=== PATIENT | female | born 1985 | race African-American/Black ===

== ENCOUNTER 2016-09-09 15:06 | Inpatient (IN) | payer OTHER ==
--- NOTE | ~2016-09-09 | BMI ---
[facility] Therapy DATE: 09/10/16 Patient: ELISE JORGENSEN Physician: ISABELLE Address: [address] [place] [address] Room/Bed: [address] [place] [address], Zip: [place] [address] Admit Date: 09/09/16 Date of : [birth year] Height: 5 7 Weight: 425 192.77 HIGH BMI NOTE: DX: 30 Y.O. FEMALE ADMITTED FOR PNA, COPD, RESP FAILURE ANTHROPOMETRICS: 5'7", WT: 425# (193 KG), BMI: 66.6 DIET: HH INTERVENTION: 1. DIET RECOMMENDATIONS: 1. RECOMMEND TO ADD CC TO CURRENT DIET ORDER ABOVE TO PROMOTE GRADUAL WEIGHT LOSS TOWARDS HEALTHY BMI (19.0-25.0) OR +/-10%IBW RD WILL F/U PER PROTOCOL Respectfully, ARY GALLEGOS MS, RD, LD [facility] Nutrition[facility] cc: client file
--- NOTE | ~2016-09-09 | EKG ---
PATIENT: ELISE JORGENSEN UNIT #: [id number] Ventricular Rate: 102 BPM Atrial Rate: 102 BPM P-R Interval: 144 ms QRS Duration: 78 ms Q-T Interval: 334 ms QTC Calculation(Bezet): 435 ms P Weare: 48 degrees Calculated R Weare: 12 degrees Calculated T Weare: 21 degrees Diagnosis Line: Sinus tachycardia Diagnosis Line: Otherwise normal ECG Diagnosis Line: When compared with ECG of 11-JUL-2016 15:58, Diagnosis Line: No significant change was found Diagnosis Line: Confirmed by MARION CARROLL MD ([id number]) on Diagnosis Line: 09/12/2016 12:00:38 AM INTERPRETING MD: CARLY OLIVA
--- NOTE | ~2016-09-09 | HP ---
Unit #: [id number] #: [id number] Patient: ESTEPHANIA JORGENSEN [id number] [facility]. [place], [place] [address] [id number] MR#: [id number] NAME: ESTEPHANIA JORGENSEN ROOM: 218 Age: 30 Sex: F Admission Date: 09/09/2016 : 1985 Attending Physician: Sulaiman White M.D. Primary Care Physician: Jorge Wen M.D. HISTORY AND PHYSICAL CHIEF COMPLAINT Shortness of breath. HISTORY OF PRESENT ILLNESS Ms. Estephania Jorgensen is a 30-year-old morbidly obese female with multiple medical problems including COPD, chronic respiratory failure on home O2, bilateral avascular necrosis of the hip diagnosed recently at [facility] by Dr. Good, history of diastolic congestive heart failure, tobacco abuse, bipolar disorder, hypertension, hypothyroidism, bipolar disorder, obstructive sleep apnea, superior venous thrombosis of arm recently which was two weeks ago. Came to [facility] ER with shortness of breath. The patient was recently discharged from [facility] on September 06, 2016, after being diagnosed again with the same problem of shortness of breath, asthma/COPD exacerbation and also superficial (1) . She has had multiple admissions. She is kind of noncompliant, continued to smoke. According to patient, she started after discharge. She thinks that they did not do anything. She continued to have shortness of breath, came to ER, and was admitted for the same reason. The patient does not complain of chest pain. She does not complain of any abdominal pain. No nausea, vomiting. No syncopal episode or dizziness. PAST MEDICAL HISTORY 1. Again chronic respiratory failure on home O2. 2. COPD/asthma. 3. Hyperglycemia. 4. Bilateral avascular necrosis of the hip. 5. Diastolic congestive heart failure. 6. Tobacco abuse. 7. Bipolar disorder. 8. Morbid obesity. 9. Hypertension. 10. Hypothyroidism. 11. Chronic pain. 12. Multiple admissions to hospital. ALLERGIES Toradol. SOCIAL HISTORY The patient lives with her spouse and a child. She smokes one pack per day, has been smoking for long period of time. No history of alcohol abuse or drug abuse. Unit #: [id number] #: [id number] Patient: ESTEPHANIA JORGENSEN FAMILY HISTORY Both her parents have lung disease and family history of morbid obesity. PAST SURGICAL HISTORY History of cardiac cath which was done on March 22, 2014. It revealed there is 20% stenosis to the mid RCA. HOME MEDICATIONS 1. Coreg 25 mg twice a day. 2. Neurontin 600 mg three times a day. 3. Guaifenesin 600 mg twice a day. 4. Synthroid 88 mcg daily. 5. Prinivil 20 mg daily. 6. Daliresp 500 mcg daily. 7. Proventil inhaler q.4 p.r.n. 8. Xanax 0.5 mg at bedtime. 9. Norvasc 5 mg daily. 10. Bumex 2 mg twice a day. 11. Singulair 10 mg daily. 12. Roxicodone 15 mg every six hourly. 13. Prednisone 10 mg daily. 14. Seroquel 400 mg at bedtime. 15. Chantix 1 mg daily. REVIEW OF SYSTEMS As per history of presenting illness. PHYSICAL EXAMINATION GENERAL: The patient is lying in bed, does not seem to be in any respiratory distress. VITAL SIGNS: Blood pressure is 140/70, respiratory rate 18, pulse 82, temperature 97.8, oxygen saturation 96%. HEENT: Head is normocephalic. Eye movements are normal. NECK: Supple. CHEST: Fair air entry. Few wheezing heard. CARDIOVASCULAR: S1, S2 positive. Regular rhythm. ABDOMEN: Obese. EXTREMITIES: Trace edema. CENTRAL NERVOUS SYSTEM: Awake, alert, oriented x3. DIAGNOSTIC STUDIES LABORATORY: ABG shows pH 7.34, pCO2 of 59.5, pO2 of 75.9, and oxygen saturation 88.5%. WBC 16.8, hemoglobin 11.5, hematocrit 36.3, platelet count 276,000. (2) 7. Sodium 138, potassium 4.2, chloride 99, BUN 8, creatinine 0.6. BNP 31. IMAGING: Chest x-ray was done which shows studies limited by patient's size. There may be minimal interstitial prominence but there are no focal infiltrates. ASSESSMENT Patient is being admitted to med/surg unit with: 1. Acute hypoxic respiratory failure. 2. Acute chronic obstructive pulmonary disease exacerbation. 3. Hyperglycemia. 4. History of bilateral avascular necrosis of the hip. 5. Diastolic congestive heart failure. 6. Tobacco abuse. Unit #: [id number] #: [id number] Patient: ESTEPHANIA JORGENSEN 7. Morbid obesity. 8. Bipolar disorder. 9. Hypothyroidism. PLAN 1. Plan is admit to med/surg unit. 2. Dr. Singer has been consulted. 3. IV Solu-Medrol is being started, although we are going to taper the dose. 4. Tobacco cessation counseling done. 5. Home medications have been reviewed. The patient was lethargic, so we are going to decrease Neurontin to 300 mg p.o. t.i.d. Make Xanax and oxycodone p.r.n. rather than scheduled dose and will hold these medications if patient is lethargic. A nicotine patch is being applied. Plan of care has been discussed with patient. Nicotine cessation counseling done at length. Dictated by Ravi Estrada/abner TD: 09/10/2016 16:06 JOB #: [id number] HISTORY AND PHYSICAL X Gem Aceves MD X HISTORY AND PHYSICAL
--- NOTE | ~2016-09-09 | CR72 ---
[facility] A Service of [facility] & [facility] RADIOLOGY TEXT RESULTS PATIENT: ELISE JORGENSEN LOCATION: C2A 218-01 : [birth year] UNIT #: [id number] AGE: [address]: Sulaiman White MD SEX: F ORDER DR: [id number] [facility] [address] [place], [place] [address] [id number] MR#: [id number] Acc #: [id number] NAME: ELISE JORGENSEN : 1985 SEX: F STUDY DATE/TIME: 09/09/2016 15:46 UNIT: C2A ROOM: 218 STUDY DESCRIPTION: CR Chest Single View Portable Attending Physician: Sulaiman White M.D. Ordering Physician: Ed Garett Willard M.D. Primary Care Physician: Jorge Wen M.D. MEDICAL IMAGING REPORT This report is preliminary unless electronic signature is present EXAM Portable chest. INDICATIONS Shortness of air for 3 days. COMPARISON 07/11/2016 FINDINGS A portable view of the chest was obtained. Heart size is mildly prominent. The vascularity is normal and the lungs are clear. There is minimal interstitial prominence. Bones are normal. IMPRESSION This study is limited by patient's size. There may be minimal interstitial prominence present, but there are no focal infiltrates. Dictated by... Zachary Nash M.D. THIS IS AN ELECTRONICALLY VERIFIED REPORT Zachary Nash M.D. at 09/10/2016 12:24 PM FEL/silverio TD: 09/10/2016 08:27 JOB #: [id number] MEDICAL IMAGING REPORT COPY
--- NOTE | ~2016-09-09 | CR151 ---
[facility] A Service of [facility] & [facility] RADIOLOGY TEXT RESULTS PATIENT: ELISE JORGENSEN LOCATION: [facility] 218-01 : [birth year] UNIT #: [id number] AGE: [address]: Sulaiman White MD SEX: F ORDER DR: [id number] [facility] [address] [facility]. [place], [place] [address] [id number] MR#: [id number] Acc #: [id number] NAME: ELISE JORGENSEN : 1985 SEX: F STUDY DATE/TIME: 09/11/2016 4:53 UNIT: [facility] ROOM: [facility] STUDY DESCRIPTION: CR Hip Min 2 Views Rt Attending Physician: Sulaiman Whiet M.D. Ordering Physician: Gem Aceves M.D. Primary Care Physician: Jorge Wen M.D. MEDICAL IMAGING REPORT This report is preliminary unless electronic signature is present EXAM Right hip 09/11/2016 INDICATIONS Pain in the right hip area tonight. No known injury. TECHNIQUE 2 views of the right hip. No comparisons. FINDINGS Exam degraded by technical factors including motion and nonstandard positioning and exposure factors. Bony pelvis intact. No acute fracture or focal soft tissue abnormality. IMPRESSION Negative. Dictated by... Alan Painting M.D. THIS IS AN ELECTRONICALLY VERIFIED REPORT Alan Painting M.D. at 09/11/2016 2:02 PM Enmanuel TD: 09/11/2016 13:37 JOB #: [id number] MEDICAL IMAGING REPORT COPY
[~2016-09-09 15:06] MED LIST: ACETAMINOPHEN PO; ADVAIR 250-501 EACH IH; ADVAIR 2501 DISK W/D PO; ADVAIR 5001 DISK W/D PO; ALBUTEROL MININEB NEB; ALBUTEROL17 GM INH; ALPRAZOLAM PO; ALPRAZOLAM0.5 MG PO; AMBIEN PO; AMOXICILLIN PO; ANEXSIA 7.5/3251 TA1 PO; ATROVENT NEB; BENADRYL PO; BENADRYL25 MG PO; BENTYL20 MG DOB; BENZONATATE PO; BUMEX PO; BUMEX1 MG PO; BUMEX2 MG PO; CARDIZEM30 M1 PO; CHANTIX PO; CLARITIN10 M3 PO; COMBIVENT INH14.7 G1 PO; COMBIVENT MININEB INH; COMBIVENT U/D3 M2 INH; COMBIVENT14.7 GM INH; DECADRON PO; DOXEPIN PO; DOXYCYCLINE HY100 M3 PO; DUONEB 2.5-0.5 M3 ML NEB; EC-NAPROSYN500 MG PO; EFFEXOR XR PO; EFFEXOR37.5 MG PO; ESKALITH PO; FIBERCON625 MG PO; FLEXERIL PO; FLEXERIL10 MG PO; HYCODAN60 ML 5MG/ PO; HYDROMET SYRUP480 ML PO; IMODIUM2 MG PO; IPRATROPIUM0.2 MG/ML NEB; K-DUR20 ME2 PO; KLONOPIN PO; KLONOPIN2 MG PO; LASIX PO; LEVAQUIN PO; LEVOTHROID100 MC1 PO; LEVOTHYROXINE100 MC1 PO; LORTAB 10-5001 EACH PO; LORTAB 10/500 T1 TAB PO; LORTAB 7.5-5001 TAB PO; MAALOX SUSPENSI30 ML PO; MEDROL PO; MEDROL4 MG/DOSE- PO; NAPROSYN-EC500 M1 PO; NAPROXEN PO; NEURONTIN PO; NEURONTIN600 MG PO; NICOTINE T1 PATCH .2 TOP; NICOTINE TRANSD21 MG EXT; NILSTAT PO; ORAL GEL15 GM TOP; OXYCODONE HCL15 MG PO; OXYGEN; PATIENT'S PHARMACY; PERCOCET 7.5/321 TAB; PERCOCET PO; PERCOCET10 PO; PERCOCET7.5 PO; PHENERGAN PO; PHENERGAN W/CO120 ML PO; PHENERGAN25 MG PO; POTASSIUM CHLO20 ME1 PO; PREDNISONE PO; PROTONIX PO; PROVENTIL0.83 MG/ML IH; SEROQUEL PO; SEROQUEL XR200 MG DOB; SEROQUEL XR200 MG PO; SEROQUEL400 MG PO; SINGULAIR PO; SOMA COMPOUND1 UDTAB PO; SOMA PO; SYMBICORT INH; SYNTHROID PO; SYNTHROID88 MCG PO; TAMIFLU75 MG PO; TUSSINEX PO; VISTARIL PO; WALGREEN PHARMACY; XANAX2 MG PO; Z-PAK; Z-PAK PO; ZANAFLEX PO; ZANAFLEX4 M1 PO; ZANTAC PO; ZAROXYLYN PO; ZITHROMAX PO; ZITHROMAX1 G/PKT PO; ZOLOFT PO; ZOLOFT100 MG PO
[2016-09-09 15:38] LABS: BASOPHIL# 0.1 X10e3 (0-0.3); BASOPHIL% 0.7 % (0-2.5); EOSINOPHIL# 0.1 X10e3 (0-0.7); EOSINOPHIL% 0.5 % (0.0-7.0); HEMATOCRIT 36.3 % (35.0-45.0); HEMOGLOBIN 11.5 gm/dL (12.0-16.0); LYMPHOCYTE# 2.4 X10e3 (1.0-3.5); LYMPHOCYTE% 14.1 % (17.0-45.0); MEAN CELL VOLUME 86.5 FL (83-96); MEAN CORPUSCULAR HEMOGLOBIN 27.4 PG (28-34); MEAN CORPUSCULAR HGB CONC 31.7 g/dL (30-36); MEAN PLATELET VOLUME 8.4 FL (6.5-11.5); MONOCYTE% 5.9 % (3.0-12.0); NEUTROPHIL# 13.2 X10e3 (1.5-7.1); NEUTROPHIL% 78.8 % (40-75); PLATELET COUNT 276 X10e3 (140-420); WHITE BLOOD COUNT 16.8 X10e3 (4.0-10.5)
[2016-09-09 15:39] LABS: DIFF IND YES
[2016-09-09 15:44] LABS: POC - CKMB 1.3 ng/mL (0.0-7.9); POC - TROPONIN <0.05 ng/mL (<=0.05)
[2016-09-09 15:45] LABS: PARTIAL THROMBOPLASTIN TIME 27.3 SECONDS (23.5-31.3); PROTHROMBIN TIME (PATIENT) 10.3 SECONDS (9.6-11.5)
[2016-09-09 15:48] LABS: ARTERIAL BLD GAS O2 SATURATION 88.5 % (90.0-100.0); ARTERIAL BLOOD GAS CARBOXY HB 6.8 %sat (0.0-9.0); ARTERIAL BLOOD GAS HCO3 32.3 mmol/L; ARTERIAL BLOOD GAS MET HB 0.7 %sat (0.0-2.0); ARTERIAL BLOOD GAS PCO2 59.5 mmHg (35.0-45.0); ARTERIAL BLOOD GAS PO2 75.9 mmHg (80.0-100); ARTERIAL BLOOD GAS pH 7.343 (7.350-7.450)
[2016-09-09 15:49] LABS: ARTERIAL BLOOD GAS ALLEN TEST NORMAL; ARTERIAL BLOOD GAS ART SITE RIGHT RADIAL; ARTERIAL BLOOD GAS DELIVERY NASAL CANNULA; ARTERIAL DRAW? YES
[2016-09-09 15:56] LABS: PLATELET ESTIMATE NORMAL (NORMAL); RBC NORMAL YES
[2016-09-09 16:15] LABS: ALBUMIN SERUM 3.5 g/dL (3.5-5.0); ALKALINE PHOSPHATASE 69 U/L (32-92); ALT (SGPT) 18 U/L (10-40); AST (SGOT) 14 U/L (10-42); BILIRUBIN,TOTAL 0.3 mg/dL (0.2-2.0); BLOOD UREA NITROGEN 8 mg/dL (9-23); BUN/CREATININE RATIO 13.33; CALCIUM SERUM 8.7 mg/dL (8.4-10.2); CARBON DIOXIDE 30 mmol/L (22-31); CHLORIDE 99 mmol/L (100-111); CREATININE SERUM 0.6 mg/dL (0.6-1.4); GLOM FILT RATE Estimated ABOVE60 mL/min (>60); GLUCOSE FASTING 116 mg/dL (70-110); POTASSIUM 4.2 mmol/L (3.5-5.1); PROTEIN TOTAL SERUM 7.1 g/dL (6.0-8.3); SODIUM 138 mmol/L (135-145)
[2016-09-09 16:20] LABS: BILIRUBIN, DIRECT <0.1 mg/dL (0.0-0.2); BILIRUBIN,INDIRECT 0.2 mg/dL (0.0-0.9)
[2016-09-09] MEDS ORDERED: DALIRESP500 MCG PO (17:48)
[2016-09-09] MEDS ORDERED: XANAX0.5 MG PO (17:49)
[2016-09-09] MEDS ORDERED: PROVENTIL INH0.5 ML NEB (17:49)
[2016-09-09] MEDS ORDERED: CARVEDILOL25 MG PO (17:50)
[2016-09-09] MEDS ORDERED: NORVASC PO (17:50)
[2016-09-09] MEDS ORDERED: BUMEX2 MG PO (17:50)
[2016-09-09] MEDS ORDERED: NEURONTIN600 MG PO (17:52)
[2016-09-09] MEDS ORDERED: GUAIFENESIN600 M1 PO (17:53)
[2016-09-09] MEDS ORDERED: PRINIVIL20 M1 PO (17:53)
[2016-09-09] MEDS ORDERED: SYNTHROID88 MCG PO (17:53)
[2016-09-09] MEDS ORDERED: SINGULAIR PO (17:54)
[2016-09-09] MEDS ORDERED: ROXICODONE15 MG PO (17:54)
[2016-09-09] MEDS ORDERED: PREDNISONE10 MG PO (17:55)
[2016-09-09] MEDS ORDERED: CHANTIX1 MG PO (17:55)
[2016-09-09] MEDS ORDERED: SEROQUEL400 MG PO (17:55)
[2016-09-10 05:59] LABS: BASOPHIL% 0.2 % (0-2.5); DIFF IND NO; EOSINOPHIL% 0.1 % (0.0-7.0); HEMATOCRIT 36.2 % (35.0-45.0); HEMOGLOBIN 11.4 gm/dL (12.0-16.0); LYMPHOCYTE# 1.3 X10e3 (1.0-3.5); LYMPHOCYTE% 6.1 % (17.0-45.0); MEAN CELL VOLUME 87.1 FL (83-96); MEAN CORPUSCULAR HEMOGLOBIN 27.5 PG (28-34); MEAN CORPUSCULAR HGB CONC 31.6 g/dL (30-36); MEAN PLATELET VOLUME 8.9 FL (6.5-11.5); MONOCYTE# 0.4 X10e3 (0-1.0); MONOCYTE% 1.9 % (3.0-12.0); NEUTROPHIL# 19.6 X10e3 (1.5-7.1); NEUTROPHIL% 91.7 % (40-75); PLATELET COUNT 283 X10e3 (140-420); RED BLOOD COUNT 4.15 X10e (3.90-5.30); RED CELL DISTRIBUTION WIDTH 16.8 % (11.0-15.5); WHITE BLOOD COUNT 21.4 X10e3 (4.0-10.5)
[2016-09-10 06:16] LABS: BLOOD UREA NITROGEN 10 mg/dL (9-23); BUN/CREATININE RATIO 14.28; CALCIUM SERUM 9.3 mg/dL (8.4-10.2); CARBON DIOXIDE 29 mmol/L (22-31); CHLORIDE 100 mmol/L (100-111); CREATININE SERUM 0.7 mg/dL (0.6-1.4); GLOM FILT RATE Estimated ABOVE60 mL/min (>60); GLUCOSE FASTING 247 mg/dL (70-110); POTASSIUM 4.4 mmol/L (3.5-5.1); SODIUM 136 mmol/L (135-145)
[2016-09-10 13:15] LABS: ARTERIAL BLD GAS O2 SATURATION 91.6 % (90.0-100.0); ARTERIAL BLOOD GAS HCO3 31.2 mmol/L; ARTERIAL BLOOD GAS MET HB 0.7 %sat (0.0-2.0); ARTERIAL BLOOD GAS PCO2 48.3 mmHg (35.0-45.0); ARTERIAL BLOOD GAS PO2 65.2 mmHg (80.0-100); ARTERIAL BLOOD GAS pH 7.419 (7.350-7.450)
[2016-09-10 13:16] LABS: ARTERIAL BLOOD GAS ALLEN TEST NORMAL; ARTERIAL BLOOD GAS ART SITE RIGHT RADIAL; ARTERIAL DRAW? YES
[2016-09-12 05:29] LABS: HEMATOCRIT 36.1 % (35.0-45.0); HEMOGLOBIN 11.5 gm/dL (12.0-16.0); MEAN CELL VOLUME 87.3 FL (83-96); MEAN CORPUSCULAR HEMOGLOBIN 27.8 PG (28-34); MEAN CORPUSCULAR HGB CONC 31.8 g/dL (30-36); MEAN PLATELET VOLUME 8.8 FL (6.5-11.5); RED BLOOD COUNT 4.14 X10e (3.90-5.30); RED CELL DISTRIBUTION WIDTH 17.4 % (11.0-15.5); WHITE BLOOD COUNT 22.4 X10e3 (4.0-10.5)
[2016-09-12 05:56] LABS: ALBUMIN SERUM 3.5 g/dL (3.5-5.0); ALKALINE PHOSPHATASE 66 U/L (32-92); ALT (SGPT) 17 U/L (10-40); AST (SGOT) 15 U/L (10-42); BILIRUBIN,TOTAL 0.4 mg/dL (0.2-2.0); BLOOD UREA NITROGEN 16 mg/dL (9-23); BUN/CREATININE RATIO 26.66; CALCIUM SERUM 9.3 mg/dL (8.4-10.2); CARBON DIOXIDE 30 mmol/L (22-31); CHLORIDE 99 mmol/L (100-111); CREATININE SERUM 0.6 mg/dL (0.6-1.4); GLOM FILT RATE Estimated ABOVE60 mL/min (>60); GLUCOSE FASTING 170 mg/dL (70-110); PROTEIN TOTAL SERUM 6.8 g/dL (6.0-8.3); SODIUM 137 mmol/L (135-145)
== END 2016-09-12 17:51 | disposition left against medical advice (07) | DRG 189 ==
LOC: CED 15:06 → CEDOF 17:20 → C2A 18:13
PROVIDERS: Emergency Medicine; Internal Medicine
PROC: 05H333Z Insertion of Infusion Device into Right Innominate Vein, Percutaneous Approach (ICD-10-PCS; principal; 2016-09-10)
PROC: B54MZZA Ultrasonography of Right Upper Extremity Veins, Guidance (ICD-10-PCS; 2016-09-10)
DX: J96.21 Acute and chronic respiratory failure with hypoxia (principal); I11.0 Hypertensive heart disease with heart failure; M87.851 Other osteonecrosis, right femur; Z68.44 Body mass index [BMI] 60.0-69.9, adult; I50.32 Chronic diastolic (congestive) heart failure; J44.1 Chronic obstructive pulmonary disease with (acute) exacerbation; M87.852 Other osteonecrosis, left femur; F31.9 Bipolar disorder, unspecified; E66.01 Morbid (severe) obesity due to excess calories; F17.210 Nicotine dependence, cigarettes, uncomplicated; E03.9 Hypothyroidism, unspecified; G89.29 Other chronic pain; Z79.52 Long term (current) use of systemic steroids; R73.9 Hyperglycemia, unspecified
CPT/HCPCS: 36415; 36600; 71010; 73502; 80048; 80053; 80076; 82308; 82553; 82803; 82947; 83880; 84484; 84703; 85025; 85027; 85610; 85730; 93005; 94640; 94760; 96374; 99285; C9113; J1815; J2270; J2930